=== PATIENT | female | born 1985 | race Two or more races ===

== ENCOUNTER 2018-02-21 20:18 | Emergency (ER) | payer OTHER ==
[~2018-02-21] VITALS: Ht 157.5 cm; Wt 57.1 kg
[2018-02-21 20:22] VITALS: Ht 157.5 cm; Wt 57.1 kg
[2018-02-21 21:50] VITALS: BP 105/75
== END 2018-02-21 21:50 | disposition home or self-care (01) ==
LOC: ED 20:18
DX: B34.9 Viral infection, unspecified (principal); Z88.1 Allergy status to other antibiotic agents
CPT/HCPCS: Q0162